=== PATIENT | male | born 1970 | race Caucasian/White ===

== ENCOUNTER 2024-02-11 18:52 | Emergency (ER) | payer SELFPAY ==
[2024-02-11] MEDS ORDERED: Morphine 4 MG/ML VIAL ONE (19:15)
[2024-02-11] MEDS ORDERED: Ketorolac Tromethamine 60 MG/2 ML VIAL ONE (19:15)
[2024-02-11] MEDS ORDERED: Ondansetron ODT 4 MG TAB ONE (19:15)
== END 2024-02-11 20:33 | disposition home or self-care (01) ==
LOC: NAV ERS 18:52
DX: M25.561 Pain in right knee (principal); M10.9 Gout, unspecified; I10 Essential (primary) hypertension
CPT/HCPCS: 96372; J1885; J2270; Q0162